=== PATIENT | female | born 2000 | race Caucasian/White ===

== ENCOUNTER 2023-07-18 06:45 | Inpatient (IN) | payer MEDICAID ==
[~2023-07-18 06:45] MED LIST: Lidocaine 1% 10 ML MDV ONE
[2023-07-18] MEDS ORDERED: Calcium Carbonate 500 MG Tab.Chew PO PRN (07:32)
[2023-07-18] MEDS ORDERED: Nalbuphine HCl 10 MG/ 1ML Amp IVPUSH PRN (07:32)
[2023-07-18] MEDS ORDERED: Sodium Chloride 0.9% 10 ML Syringe FLUSH PRN (07:32)
[2023-07-18] MEDS ORDERED: Ondansetron 4 MG/2 ML SDV IVPUSH PRN (07:32)
[2023-07-18] MEDS ORDERED: Oxytocin/Lactated Ringers 30 UNIT/500 ML BAG IV SCH ×2 (07:45→09:15)
[2023-07-18] MEDS: Oxytocin/Lactated Ringers 30 UNIT/500 ML BAG IV SCH (07:53)
[2023-07-18] MEDS: Lactated Ringers 1,000 ML IV SCH (07:53)
[2023-07-18 08:06] LABS: BASOPHILS PERCENT AUTO 0.3 % (0.0-1.0); EOSINOPHILS PERCENT AUTO 0.4 % (0.0-6.0); HEMATOCRIT 35.5 % (37.0-47.0); HEMOGLOBIN 11.7 gm/dl (12.0-16.0); IMMATURE GRAN ABSOLUTE AUTO 0.06 K/mm3 (0.00-0.05); IMMATURE GRAN PERCENT AUTO 0.6 % (0.0-0.4); LYMPHOCYTES ABSOLUTE AUTO 2.1 K/mm3 (1.0-4.8); LYMPHOCYTES PERCENT AUTO 21.7 % (24.0-44.0); MEAN CORPUSCULAR HEMOGLOBIN 29.2 pg (28.0-32.0); MEAN CORPUSCULAR VOLUME 88.5 fl (83.0-99.0); MEAN PLATELET VOLUME 11.3 fl (9.4-12.3); MONOCYTES ABSOLUTE AUTO 0.7 K/mm3 (0.0-0.8); MONOCYTES PERCENT AUTO 7.6 % (0.0-8.0); NEUTROPHILS ABSOLUTE AUTO 6.6 K/mm3 (1.8-7.7); NEUTROPHILS PERCENT AUTO 69.4 % (41.0-71.0); PLATELET COUNT,PLT 213 K/mm3 (150-400); RED BLOOD CELL COUNT 4.01 M/mm3 (4.10-5.30); WHITE BLOOD CELL COUNT,WBC 9.45 K/mm3 (3.9-11.3)
[2023-07-18] MEDS ORDERED: diphenhydrAMINE 50 MG/ML SDV IVPUSH PRN (08:47)
[2023-07-18] MEDS ORDERED: Phenylephrine 1% 10 MG/ML SDV IVPUSH PRN (08:47)
[2023-07-18] MEDS ORDERED: ePHEDrine 50 MG/ML SDV IVPUSH PRN (08:47)
[2023-07-18] MEDS: fentaNYL 100 MCG/2 ML SDV EPIDUR PRN (10:32)
[2023-07-18] MEDS: Bupivacaine/fentaNYL/NS 100 ML Bag EPIDUR PRN (10:32)
[2023-07-18] MEDS: Sodium Chloride 0.9% 10 ML Syringe FLUSH SCH (15:27)
[2023-07-18] MEDS: Lidocaine 1% 50 ML MDV INJECT PRN (16:00)
[2023-07-18] MEDS: Benzocaine/Menthol 20%-0.5% Spray 78 GM Cannister TOP PRN (17:49)
[2023-07-18] MEDS: Witch Hazel Medicated Pads 40/Jar TOP PRN (17:50)
[2023-07-18] MEDS: Ibuprofen 600 MG Tab PO SCH (19:01)
[2023-07-18] MEDS: Acetaminophen 325 MG Tab PO PRN (23:15)
[2023-07-19 06:56] LABS: HEMOGLOBIN 11.3 gm/dl (12.0-16.0); MEAN CORPUSCULAR HEMOGLOBIN 28.4 pg (28.0-32.0); MEAN CORPUSCULAR HGB CONC 32.3 g/dl (32.0-36.0); MEAN CORPUSCULAR VOLUME 87.9 fl (83.0-99.0); MEAN PLATELET VOLUME 11.6 fl (9.4-12.3); PLATELET COUNT,PLT 188 K/mm3 (150-400); RED BLOOD CELL COUNT 3.98 M/mm3 (4.10-5.30); WHITE BLOOD CELL COUNT,WBC 12.26 K/mm3 (3.9-11.3)
[2023-07-19] MEDS: Ibuprofen 600 MG Tab PO SCH (07:53)
[2023-07-19] MEDS: Docusate Sodium 100 MG Cap PO PRN (12:28)
== END 2023-07-20 09:53 | disposition home or self-care (01) | DRG 807 ==
LOC: JD.OB 06:45 → OBSVTOIN 15:51 → JD.OB 15:51
PROVIDERS: ADMIT Family Medicine; ATTEND Family Medicine
PROC: 10E0XZZ Delivery of Products of Conception, External Approach (ICD-10-PCS; principal; 2023-07-18)
PROC: 0KQM0ZZ Repair Perineum Muscle, Open Approach (ICD-10-PCS; 2023-07-18)
PROC: 3E033VJ Introduction of Other Hormone into Peripheral Vein, Percutaneous Approach (ICD-10-PCS; 2023-07-18)
PROC: 3E0R3BZ Introduction of Anesthetic Agent into Spinal Canal, Percutaneous Approach (ICD-10-PCS; 2023-07-18)
PROC: 00HU33Z Insertion of Infusion Device into Spinal Canal, Percutaneous Approach (ICD-10-PCS; 2023-07-18)
PROC: 10907ZC Drainage of Amniotic Fluid, Therapeutic from Products of Conception, Via Natural or Artificial Opening (ICD-10-PCS; 2023-07-18)
DX: O99.02 Anemia complicating childbirth (principal); Z37.0 Single live birth; O70.1 Second degree perineal laceration during delivery; Z3A.39 39 weeks gestation of pregnancy; Z88.0 Allergy status to penicillin
CPT/HCPCS: 36415; 51702; 59025; 59409; 76815; 76815-26; 85025; 85027; 86592; A9270-GY; J2001; J3010; J3490; J7120; J7999